=== PATIENT | female | born 1990 | race Caucasian/White ===

== ENCOUNTER 2022-01-10 07:45 | Inpatient (IN) ==
[2022-01-10] MEDS ORDERED: OXYTOCIN 30 UNITS/500 ML BAG IV PRN (09:17)
[2022-01-10] MEDS ORDERED: DINOPROSTONE 10 MG INSERT PV ONE ×2 (09:17→23:18)
[2022-01-10] MEDS ORDERED: BUTORPHANOL TARTRATE 1 MG/ML VIAL IV PRN (09:17)
--- NOTE | 2022-01-10 09:49 | History & Physical Report ---
Date of Service January 10, 2022 Assessment & Plan (1) Chronic hypertension during , antepartum: Plan: 31-year-old at 39 weeks and 3 days of gestation presenting today for scheduled induction of labor at term due to history of chronic hypertension, not on meds, Vital signs stable afebrile, heart rate reassuring, Cervix unfavorable, GBS and johnson testing were negative, Plan to admit, monitor, labs, cervical ripening with Cervidil. Discuss the op tions of cervical ripening and what to expect during induction of labor, she understands all. All questions were answered. Admission and Anticipated Discharge Date Admission Date: January 10, 2022 History of Present Illness Primary Care Provider: NO PCP Patient is a 31-year-old at 39 weeks and 3 days of gestation who was scheduled for induction of labor at term due to history of chronic hypertension. She was diagnosed with hypertension before her when she was placed on metoprolol which gave her side effects and she quit. Her blood pressures were within normal limits. She has not required any medication during this . She denies headaches, change in her vision, nausea vomiting, epigastric or right upper quadrant pain. She denies contractions, leakage of fluid, vaginal bleeding. She reports good movements. She has a history of intermittent asthma for which she uses albuterol inhaler as needed, she usually uses 3-4 times a year. Has a history of anxiety for which she was using escitalopram but she quit during this . GBS negative, Coronavirus testing negative on 01/07. 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 Allergies Allergy/AdvReac Type Severity Reaction Status Date / Time Penicillins Allergy Rash Verified 01/10/22 07:59 Home Medications Medication Instructions Recorded Confirmed Type albuterol 90 mcg/actuation aerosol 2 mcg INHALATION PRN 01/10/22 History inhaler aspirin 81 mg chewable tablet 81 mg PO DAILY 01/10/22 01/10/22 History polyethylene glycol 3350 17 gram 17 g PO DAILY 01/10/22 01/10/22 History oral powder packet (Miralax) prenat.vits,garth,muc-kiwn-lpsnc 1 tab PO DAILY 01/10/22 01/10/22 History Patient History Medical History (Updated 01/10/22 @ 09:48 by Jennifer Cohen MD) Asthma Chronic hypertension (~09/19/18) Constipation Rhinitis Thyroid goiter UTI (urinary tract infection) Surgical History Hx of LASIK S/P removal of ovarian cyst (~06/13/17) Family History Mother Hypercholesterolemia Grandmother (Maternal) Diabetes Mother Diabetes Mother Chronic hypertension Grandfather (Maternal) Chronic hypertension Grandmother (Maternal) Chronic hypertension Grandmother (Maternal) Colon cancer Social History Smoking Status: Never smoker Hx Alcohol Use: No Hx Substance Use: No Preferred Language: Vietnamese Communication Ability: Effective Food Sampler Required: No Beliefs That Will Affect Care: None marital status: Current Living Situation: Spouse Current Living Situation Comment: Lives with and 2 dogs Other Information That Helps Us Care for You: No Feels Safe at Home: Yes Safety Concerns: Feels Safe At This Time Assistive Devices: None TELETYPE CLERK History No h/o STD's, no h/o HSV/ Chlamydia/ GC Review of Systems as per Subjective / HPI Physical Exam Constitutional: WD/WN, vitals as above well developed and well nourished Gastrointestinal (Abdomen): normal bowel sounds, soft, nontender, no hepatosplenomegaly (Gravid, Oskar 8 lb) Genitourinary: normal external appearance OB Exam Abdomen: + vertex Manual OB Exam: + cervical dilation 1 cm, + cervical effacement 30% and + station -2 OB Exam Monitor Tracing: + external uterine monitor used and + category I Results & Data ([facility]) Vital Signs (Past 12 Hours) Vital Signs Temp Pulse Resp BP 01/10/22 09:40 94 H 141/93 H 01/10/22 08:50 97 H 139/97 01/10/22 08:30 98 H 138/95 01/10/22 07:57 37.1 C 105 H 20 143/98 H
[2022-01-10 10:08] LABS: Hematocrit (blood only) 33.5 % (37-47); Hemoglobin 11.3 g/dL (12.0-16.0); Mean Corpuscular Hemoglobin 30.5 pg (25-34); Mean Corpuscular Hgb Conc 33.7 g/dL (32-36); Mean Corpuscular Volume 90.5 fL (80-100); Mean Platelet Volume 11.3 fL (7.4-10.4); Platelet Count 214 K/uL (130-400); RDW Coefficient of Variation 12.7 % (11.5-14.5); RDW Standard Deviation 42.1 fL (36.4-46.3)
[2022-01-10] MEDS ORDERED: LABETALOL HCL 100 MG TAB PO ONE ×2 (10:10→18:07)
[2022-01-10 10:21] LABS: Alanine Aminotransferase 15 U/L (7-52); Albumin Globulin Ratio 1.2 (0.9-2); Albumin Level 3.5 gm/dl (3.4-5.0); Alkaline Phosphatase 165 U/L (34-104); Anion Gap 8 (3-11); Aspartate Aminotransferase 16 U/L (13-39); Bilirubin,Total 0.4 mg/dl (0.2-1.0); Blood Urea Nitrogen 7 mg/dl (6-23); Carbon Dioxide 21 mmol/L (21-32); Chloride 106 mmol/L (98-107); Creatinine Clr Calc Pharmacy 198.3 ml/min; Est GFR (African American) > 150.0 ml/min; Est GFR (Non-African American) 129.9 ml/min; Globulin 2.9 gm/dl (2.5-4.0); Glucose 91 mg/dl (70-99(Fasting)); Potassium 3.8 mmol/L (3.5-5.1); Sodium 135 mmol/L (136-145); Total Protein 6.4 gm/dl (6.0-8.3)
--- NOTE | 2022-01-10 17:01 | Obstetrical Progress Note ---
Date of Service January 10, 2022 Assessment & Plan Admission and Anticipated Discharge Date Admission Date: January 10, 2022 Subjective Patient is reevaluated. She feels well, no complaints. She feels mild irregula r cramping. No pain. No leakage of fluid or vaginal bleeding. She reports good movements. She plans to sleep and rest. Vital signs stable, s/p 50 mg of labetalol for elevated blood pressures and blood pressures improved. No other symptoms, labs are within normal limits. heart rate category 1, Continue to monitor closely and cervical ripening. Discussed what to expect with next exam and removal of Cervidil at 12 hours, All questions were answered. Results & Data ([facility]) Vital Signs (Past 12 Hours) Vital Signs Temp Pulse Resp BP 01/10/22 16:01 36.7 C 93 H 20 132/87 01/10/22 14:44 98 H 16 139/89 01/10/22 14:22 99 H 20 139/94 01/10/22 13:02 102 H 135/90 01/10/22 12:48 37 C 101 H 20 133/91 01/10/22 11:20 103 H 16 141/82 H 01/10/22 11:06 108 H 144/90 H 01/10/22 10:51 93 H 20 134/96 01/10/22 10:35 100 H 138/93 01/10/22 10:20 101 H 134/93 01/10/22 10:04 93 H 143/97 H 01/10/22 09:40 94 H 20 141/93 H 01/10/22 08:50 97 H 20 139/97 01/10/22 08:30 98 H 16 138/95 01/10/22 07:57 37.1 C 105 H 20 143/98 H
[2022-01-10] MEDS ORDERED: ONDANSETRON INJ 2 MG/ML 2 ML VIAL IV PRN (19:13)
[2022-01-10] MEDS: ACETAMINOPHEN 325 MG TAB PO PRN (19:24)
[2022-01-10] MEDS: LABETALOL HCL 100 MG TAB PO SCH (22:33)
--- NOTE | 2022-01-10 23:20 | Obstetrical Progress Note ---
Date of Service January 10, 2022 Assessment & Plan Admission and Anticipated Discharge Date Admission Date: January 10, 2022 Subjective Patient is reevaluated. She feels well no complaints Mild cramping and back pain No GLOVER/ Change in vision/ N&V She are dinner and kept down +FM Cervidil ws removed at 10 pm VE; 1-2 cm/ 50%/ -2, posterior, soft FHR categ I BP's stable, on Labetalol 50 mg bid Plan to continue with cervical ripening 2ND Cervidil Continue to monitor closely Results & Data ([facility]) Vital Signs (Past 12 Hours) Vital Signs Temp Pulse Resp BP 01/10/22 23:16 94 H 131/81 01/10/22 22:32 90 135/92 01/10/22 20:23 104 H 155/87 H 01/10/22 19:16 36.8 C 99 H 18 140/90 01/10/22 19:10 102 H 136/94 01/10/22 17:52 103 H 159/101 H 01/10/22 17:02 93 H 135/92 01/10/22 16:01 36.7 C 93 H 20 132/87 01/10/22 14:44 98 H 16 139/89 01/10/22 14:22 99 H 20 139/94 01/10/22 13:02 102 H 135/90 01/10/22 12:48 37 C 101 H 20 133/91 01/10/22 11:20 103 H 16 141/82 H
[2022-01-11] MEDS: ACETAMINOPHEN 325 MG TAB PO PRN (06:29)
--- NOTE | 2022-01-11 09:12 | Obstetrical Progress Note ---
Date of Service January 11, 2022 Assessment & Plan (1) Normal course: PPD #1 Pt doing well anticipate disch this PM Results & Data ([facility]) Vital Signs (Past 12 Hours) Vital Signs Temp Pulse Resp BP 01/11/22 07:04 36.8 C 96 H 18 133/89 01/11/22 07:01 97 H 132/87 01/11/22 06:27 92 H 134/83 01/11/22 06:26 36.7 C 16 01/11/22 04:16 36.6 C 95 H 16 145/89 H 01/11/22 02:13 36.8 C 16 01/11/22 01:54 93 H 125/72 01/10/22 23:16 94 H 131/81 01/10/22 22:32 90 135/92
[2022-01-11] MEDS: POLYETHYLENE (MIRALAX) 17 GM PACK PO SCH (14:40)
[2022-01-11] MEDS: LABETALOL HCL 100 MG TAB PO SCH ×2 (14:40→19:37)
[2022-01-11] MEDS: CEROVITE ADV FORMULA TAB PO SCH (14:40)
--- NOTE | 2022-01-11 16:40 | Labor Progress Brief Note ---
Date of Service January 11, 2022 Assessment & Plan (1) Elective induction of labor planned: Plan: Day #2 of induction Pt received Cervidil through night FHR; CAT1 Ctx Mild, irregular VE; 1-2/thick/post Cervidil removed Bailey bulb placed with 35cc saline w/o difficulty Admission and Anticipated Discharge Date Admission Date: January 10, 2022 Results & Data ([facility]) Vital Signs (Past 12 Hours) Vital Signs Temp Pulse Resp BP 01/11/22 13:45 36.6 C 93 H 18 135/90 01/11/22 07:04 36.8 C 96 H 18 133/89 01/11/22 07:01 97 H 132/87 01/11/22 06:27 92 H 134/83 01/11/22 06:26 36.7 C 16
[2022-01-11] MEDS: LACTATED RINGER'S 1,000 ML IV PRN ×2 (21:19→22:21)
[2022-01-11] MEDS ORDERED: diphenhydrAMINE 50 MG/ML VIAL IV PRN (21:24)
[2022-01-11] MEDS ORDERED: NALOXONE HCL 0.4 MG/1 ML VIAL/CARP IV PRN (21:24)
[2022-01-11] MEDS ORDERED: ePHEDrine sulfate 50 MG/ML AMP IV PRN (21:24)
[2022-01-11] MEDS ORDERED: ePHEDrine sulfate 50 MG/ML AMP ONE (21:24)
[2022-01-11] MEDS ORDERED: NALOXONE HCL 1 MG in SODIUM CHLORIDE 0.9% 1000ML 1,000 ML IV PRN (21:24)
[2022-01-11] MEDS ORDERED: NALBUPHINE HCL INJ 10 MG/ML AMP IV PRN (21:24)
--- NOTE | 2022-01-11 21:24 | Anesthesiology Consultation ---
Date of Service January 11, 2022 Assessment & Plan (1) Encounter for pre-operative examination: Chart Review Chart Review: Acceptable Risk for Surgery and Patient NOT seen in Pre Admission Testing Consults Requested none History Height/Weight Height: 5 ft 8 in Weight: 94.982 kg Allergies Allergy/AdvReac Type Severity Reaction Status Date / Time Penicillins Allergy Rash Verified 01/10/22 07:59 Medications Home Medications Medication Instructions Recorded Confirmed Last Taken albuterol 90 mcg/actuation aerosol 2 mcg INHALATION Q4 PRN 01/10/22 01/10/22 Unknown inhaler aspirin 81 mg chewable tablet 81 mg PO DAILY 01/10/22 01/10/22 01/10/22 06:00 polyethylene glycol 3350 17 gram 17 g PO DAILY 01/10/22 01/10/22 01/10/22 06:00 oral powder packet (Miralax) prenat.vits,garth,oaa-wowh-mldry 1 tab PO DAILY 01/10/22 01/10/22 01/10/22 06:00 acetaminophen 325 mg tablet 650 mg PO Q4H #30 tab 01/11/22 Unknown Active Medications Generic Name Dose Route Start Last Admin Trade Name Freq PRN Reason Stop Dose Admin Acetaminophen 650 mg 01/10/22 19:13 01/11/22 06:29 Acetaminophen 325 Mg Tab PO 02/09/22 19:12 650 mg Q4H PRN Administration Pain Lactated Ringer's 1,000 mls @ 150 mls/hr 01/10/22 09:17 01/11/22 21:19 Lr IV 01/12/22 09:16 999 mls/hr .[id number] PRN Administration L&D Protocol Protocol Labetalol HCl 50 mg 01/10/22 21:00 01/11/22 19:37 Labetalol Hcl 100 Mg Tab PO 02/09/22 20:59 50 mg BID KRYSTNE Administration Multivitamins/Minerals 1 tab 01/11/22 09:00 01/11/22 14:40 Cerovite Adv Formula Tab PO 02/10/22 08:59 Not Given DAILY KRYSTEN Polyethylene Glycol 17 gm 01/11/22 09:00 01/11/22 14:40 Polyethylene (Miralax) 17 Gm Pack PO 02/10/22 08:59 Not Given DAILY KRYSTEN Past Medical History Medical History Asthma Chronic hypertension (~09/19/18) Constipation Rhinitis Thyroid goiter UTI (urinary tract infection) Past Family History Family History Mother Hypercholesterolemia Grandmother (Maternal) Diabetes Mother Diabetes Mother Chronic hypertension Grandfather (Maternal) Chronic hypertension Grandmother (Maternal) Chronic hypertension Grandmother (Maternal) Colon cancer Past Surgical History Surgical History Hx of LASIK S/P removal of ovarian cyst (~06/13/17) Social History Smoking Status: Never smoker Hx Alcohol Use: No Hx Substance Use: No substance use type: does not use Physical Exam Vital Signs Last Vital Signs Temp 98.1 F 01/11/22 18:44 Pulse 95 H 01/11/22 21:15 Resp 20 01/11/22 18:44 BP 143/96 H 01/11/22 21:15 Testing Laboratory Results 01/10/22 09:35 01/10/22 09:35
[2022-01-11] MEDS ORDERED: fentaNYL 2MCG/ML ROPIVACAINE 1.25MG/ML 100 ML BAG EPI ONE (21:25)
[2022-01-11] MEDS ORDERED: BUPIVACAINE 0.25% 30 ML VIAL ONE (21:25)
[2022-01-11] MEDS ORDERED: fentaNYL citrate 100 MCG/2 ML VIAL ONE (21:25)
[2022-01-11] MEDS ORDERED: SODIUM CHLORIDE 0.9% INJ 10 ML VIAL ONE (21:25)
[2022-01-11] MEDS ORDERED: OXYTOCIN 30 UNITS/500 ML BAG IV PRN (21:44)
--- NOTE | 2022-01-11 21:44 | Labor Progress Brief Note ---
Date of Service January 11, 2022 Assessment & Plan (1) Elective induction of labor planned: Plan: Pt doing well Bedside sono; VT FHR; CAT1 Ctx; 3-6mins VE; 4/50/-2 AROM with scalp electrode- clear EFW; 8-9lbs Admission and Anticipated Discharge Date Admission Date: January 10, 2022 Results & Data ([facility]) Vital Signs (Past 12 Hours) Vital Signs Temp Pulse Resp BP Pulse Ox 01/11/22 21:38 92 H 97 01/11/22 21:15 95 H 143/96 H 01/11/22 21:07 100 H 139/96 01/11/22 19:32 103 H 141/99 H 01/11/22 18:44 36.7 C 98 H 20 144/93 H 01/11/22 13:45 36.6 C 93 H 18 135/90
[2022-01-11] MEDS: fentaNYL 2MCG/ML ROPIVACAINE 1.25MG/ML 100 ML BAG EPI PRN (21:51)
[2022-01-12] MEDS ORDERED: BUPIVACAINE 0.25% 30 ML VIAL ONE ×2 (04:06→07:02)
[2022-01-12] MEDS ORDERED: fentaNYL citrate 100 MCG/2 ML VIAL ONE ×2 (04:11→09:10)
[2022-01-12] MEDS: fentaNYL 2MCG/ML ROPIVACAINE 1.25MG/ML 100 ML BAG EPI PRN (04:22)
[2022-01-12] MEDS: LACTATED RINGER'S 1,000 ML IV PRN (06:08)
[2022-01-12] MEDS ORDERED: LIDOCAINE 2%/EPINEPHRINE 1:200,000 20 ML SDV ONE (09:01)
[2022-01-12 09:22] LABS: Basophils # (auto) 0.01 K/uL (0-0.2); Basophils % (auto) 0.1 %; Hematocrit (blood only) 35.1 % (37-47); Hemoglobin 11.9 g/dL (12.0-16.0); Immature Granulocytes # (auto) 0.13 K/uL (0.00-0.02); Immature Granulocytes % (auto) 0.7 %; Lymphocytes # (auto) 0.75 K/uL (1.2-3.4); Mean Corpuscular Hemoglobin 30.3 pg (25-34); Mean Corpuscular Hgb Conc 33.9 g/dL (32-36); Mean Corpuscular Volume 89.3 fL (80-100); Mean Platelet Volume 11.2 fL (7.4-10.4); Monocytes # (auto) 1.07 K/uL (0.11-0.59); Monocytes % (auto) 5.8 %; Neutrophils # (auto) 16.58 K/uL (1.4-6.5); Neutrophils % (auto) 89.4 %; Platelet Count 190 K/uL (130-400); RDW Coefficient of Variation 13.2 % (11.5-14.5); RDW Standard Deviation 42.8 fL (36.4-46.3); Red Blood Count 3.93 M/uL (4.2-5.4); White Blood Count 18.54 K/uL (4.8-10.8)
--- NOTE | 2022-01-12 09:42 | Obstetrical Progress Note ---
Date of Service January 12, 2022 Assessment & Plan Admission and Anticipated Discharge Date Admission Date: January 10, 2022 Subjective Patient is seen and examined. I got a signout from Dr. Byrnes around her last ni ght and started Pitocin. Her cervix was 9 cm dilated and +1 station when he left. Patient got more painful and received another epidural this morning. I attempt to see her about an hour ago but she was very painful and crying. Anesthesia came in again and gave her bolus 1 more time. Now she is more comfortable. heart rate is category 1, toco with contractions every 2 to 3 minutes. Vaginal exam, cervix is 9, soft reducible anterior left but there are thin cervix on both sides of the head. Anterior fontanelle is at 3 o'clock position. Head is at +1 station with a small caput which is at +2 station. Patient states she is tired and wants to sleep. Continue to monitor closely and will start pushing when cervix is completely dilated. Results & Data ([facility]) Vital Signs (Past 12 Hours) Vital Signs Temp Pulse Resp BP Pulse Ox 01/12/22 09:35 112 H 159/95 H 01/12/22 09:34 114 H 97 01/12/22 09:31 105 H 145/81 H 01/12/22 09:29 104 H 95 01/12/22 09:28 103 H 151/82 H 01/12/22 09:25 99 H 151/86 H 01/12/22 09:24 99 H 94 01/12/22 09:23 102 H 152/87 H 01/12/22 09:20 36.9 C 97 H 17 88 L 01/12/22 09:19 96 H 161/87 H 94 01/12/22 09:16 99 H 158/78 H 01/12/22 09:14 94 H 97 01/12/22 09:13 96 H 156/87 H 85 L 01/12/22 09:10 84 168/95 H 01/12/22 09:08 92 H 99 01/12/22 09:07 91 H 159/96 H 01/12/22 09:05 88 149/91 H 01/12/22 09:04 89 143/87 H 01/12/22 09:03 105 H 98 01/12/22 08:58 100 H 98 01/12/22 08:57 97 H 145/89 H 01/12/22 08:53 91 H 143/85 H 98 01/12/22 08:48 89 144/85 H 96 01/12/22 08:43 92 H 141/91 H 98 01/12/22 08:38 100 H 156/84 H 96 01/12/22 08:33 103 H 143/92 H 95 01/12/22 08:28 99 H 95 01/12/22 08:27 115 H 132/92 01/12/22 08:23 103 H 96 01/12/22 08:22 114 H 155/86 H 01/12/22 08:18 104 H 95 01/12/22 08:17 108 H 134/84 01/12/22 08:13 95 H 94 01/12/22 08:12 101 H 131/82 01/12/22 08:08 107 H 95 01/12/22 08:07 105 H 137/87 01/12/22 08:03 114 H 97 01/12/22 08:02 108 H 140/89 01/12/22 07:59 106 H 87 L 01/12/22 07:58 103 H 91 01/12/22 07:57 106 H 141/87 H 01/12/22 07:54 98 H 141/87 H 01/12/22 07:53 90 95 01/12/22 07:49 101 H 141/83 H 01/12/22 07:48 98 H 98 01/12/22 07:43 105 H 96 01/12/22 07:42 102 H 139/87 01/12/22 07:39 93 H 88 L 01/12/22 07:38 92 H 93 01/12/22 07:35 108 H 136/89 01/12/22 07:34 98 H 89 L 01/12/22 07:33 97 H 139/91 90 01/12/22 07:31 91 H 140/92 01/12/22 07:29 111 H 146/91 H 01/12/22 07:28 37.0 C 98 H 16 90 01/12/22 07:27 95 H 144/88 H 01/12/22 07:25 102 H 144/90 H 01/12/22 07:23 94 H 147/87 H 96 01/12/22 07:21 90 149/86 H 01/12/22 07:20 88 149/89 H 01/12/22 07:18 105 H 158/93 H 98 01/12/22 07:15 90 158/92 H 01/12/22 07:13 106 H 98 01/12/22 07:08 104 H 96 01/12/22 07:04 95 H 156/95 H 01/12/22 07:03 100 H 92 01/12/22 07:00 18 01/12/22 06:58 102 H 94 01/12/22 06:53 113 H 97 01/12/22 06:50 97 H 87 L 01/12/22 06:49 107 H 146/92 H 01/12/22 06:48 99 H 91 01/12/22 06:44 100 H 86 L 01/12/22 06:43 96 H 94 01/12/22 06:38 111 H 93 01/12/22 06:36 105 H 87 L 01/12/22 06:33 100 H 93 01/12/22 06:32 110 H 150/77 H 01/12/22 06:30 36.9 C 18 01/12/22 06:28 104 H 93 01/12/22 06:23 110 H 98 01/12/22 06:18 107 H 96 01/12/22 06:13 100 H 90 01/12/22 06:10 101 H 86 L 01/12/22 06:08 102 H 97 01/12/22 06:03 96 H 97 01/12/22 06:00 18 01/12/22 05:58 106 H 95 01/12/22 05:53 119 H 94 01/12/22 05:48 115 H 97 01/12/22 05:43 107 H 94 01/12/22 05:38 113 H 96 01/12/22 05:33 125 H 146/94 H 98 01/12/22 05:30 18 01/12/22 05:28 118 H 99 01/12/22 05:23 127 H 98 01/12/22 05:18 114 H 136/85 96 01/12/22 05:13 124 H 95 01/12/22 05:08 113 H 97 01/12/22 05:03 107 H 132/84 96 01/12/22 05:00 18 01/12/22 04:58 111 H 97 01/12/22 04:53 105 H 96 01/12/22 04:48 119 H 140/100 95 01/12/22 04:43 109 H 93 01/12/22 04:38 104 H 98 01/12/22 04:33 98 H 96 01/12/22 04:32 100 H 134/78 01/12/22 04:30 36.9 C 18 01/12/22 04:28 108 H 96 01/12/22 04:23 109 H 95 01/12/22 04:20 106 H 94 01/12/22 04:18 103 H 95 01/12/22 04:17 90 119/67 01/12/22 04:15 108 H 92 01/12/22 04:13 96 H 97 01/12/22 04:08 97 H 98 01/12/22 04:06 95 H 94 01/12/22 04:03 111 H 97 01/12/22 04:02 105 H 132/84 01/12/22 04:00 18 01/12/22 03:59 107 H 93 01/12/22 03:58 96 H 98 01/12/22 03:53 105 H 97 01/12/22 03:48 93 H 97 01/12/22 03:47 98 H 131/79 01/12/22 03:43 103 H 96 01/12/22 03:38 101 H 96 01/12/22 03:36 106 H 94 01/12/22 03:34 105 H 133/80 01/12/22 03:33 102 H 94 01/12/22 03:30 105 H 94 01/12/22 03:28 103 H 94 01/12/22 03:25 107 H 94 01/12/22 03:23 101 H 94 01/12/22 03:20 107 H 94 01/12/22 03:18 103 H 94 01/12/22 03:17 104 H 126/75 01/12/22 03:14 100 H 94 01/12/22 03:13 114 H 97 01/12/22 03:08 106 H 95 01/12/22 03:06 105 H 94 01/12/22 03:03 102 H 96 01/12/22 03:02 107 H 109/71 01/12/22 03:01 97 H 94 01/12/22 02:58 105 H 97 01/12/22 02:53 96 H 94 01/12/22 02:50 96 H 94 01/12/22 02:48 101 H 95 01/12/22 02:47 99 H 129/84 01/12/22 02:44 99 H 124/83 01/12/22 02:43 105 H 96 01/12/22 02:38 98 H 98 01/12/22 02:33 92 H 97 01/12/22 02:30 18 01/12/22 02:28 94 H 95 01/12/22 02:23 95 H 96 01/12/22 02:18 90 98 01/12/22 02:17 91 H 127/79 01/12/22 02:16 91 H 135/82 01/12/22 02:13 105 H 95 01/12/22 02:11 95 H 93 01/12/22 02:08 87 97 01/12/22 02:05 92 H 93 01/12/22 02:03 90 98 01/12/22 02:00 36.9 C 18 01/12/22 01:58 102 H 97 01/12/22 01:53 95 H 97 01/12/22 01:48 89 96 01/12/22 01:47 88 132/87 01/12/22 01:43 97 H 97 01/12/22 01:38 92 H 96 01/12/22 01:33 90 99 01/12/22 01:32 88 131/78 01/12/22 01:30 18 01/12/22 01:28 88 96 01/12/22 01:23 90 97 01/12/22 01:18 89 136/80 97 01/12/22 01:13 94 H 96 01/12/22 01:08 90 96 01/12/22 01:03 95 H 96 01/12/22 01:02 90 124/71 01/12/22 01:00 18 01/12/22 00:58 94 H 98 01/12/22 00:53 95 H 96 01/12/22 00:48 88 96 01/12/22 00:47 97 H 128/79 01/12/22 00:43 99 H 95 01/12/22 00:38 95 H 97 01/12/22 00:33 90 120/72 96 01/12/22 00:30 36.9 C 18 01/12/22 00:28 94 H 95 01/12/22 00:27 88 94 01/12/22 00:23 84 96 01/12/22 00:18 91 H 133/92 92 01/12/22 00:13 87 95 01/12/22 00:08 85 96 01/12/22 00:03 97 H 124/88 97 01/12/22 00:00 18 01/11/22 23:58 97 H 97 01/11/22 23:53 98 H 97 01/11/22 23:49 88 120/74 01/11/22 23:48 85 95 01/11/22 23:47 88 94 01/11/22 23:43 91 H 95 01/11/22 23:38 89 96 01/11/22 23:33 88 95 01/11/22 23:32 84 122/83 01/11/22 23:30 18 01/11/22 23:28 88 97 01/11/22 23:23 89 98 01/11/22 23:18 97 H 98 01/11/22 23:17 83 125/85 01/11/22 23:13 88 96 01/11/22 23:08 88 97 01/11/22 23:03 89 96 01/11/22 23:02 86 121/82 01/11/22 23:00 18 01/11/22 22:58 91 H 97 01/11/22 22:53 97 H 98 01/11/22 22:48 98 H 98 01/11/22 22:47 90 134/88 01/11/22 22:43 94 H 98 01/11/22 22:38 99 H 98 01/11/22 22:33 100 H 97 01/11/22 22:32 91 H 136/86 01/11/22 22:28 96 H 98 01/11/22 22:23 93 H 98 01/11/22 22:18 88 97 01/11/22 22:17 90 133/85 01/11/22 22:15 86 136/96 01/11/22 22:13 94 H 136/93 97 01/11/22 22:11 86 141/92 H 01/11/22 22:09 91 H 144/92 H 01/11/22 22:08 93 H 97 01/11/22 22:07 92 H 135/89 01/11/22 22:05 90 134/97 01/11/22 22:04 18 01/11/22 22:03 90 131/88 97 01/11/22 22:02 18 01/11/22 22:01 92 H 132/86 01/11/22 22:00 18 01/11/22 21:59 89 132/87 01/11/22 21:58 89 18 97 01/11/22 21:57 95 H 137/94 01/11/22 21:56 18 01/11/22 21:55 86 133/87 01/11/22 21:53 94 H 150/90 H 98 01/11/22 21:51 93 H 150/99 H 01/11/22 21:49 86 138/92 01/11/22 21:48 90 95 01/11/22 21:43 100 H 98
[2022-01-12 10:05] LABS: Albumin Globulin Ratio 1.3 (0.9-2); Albumin Level 3.5 gm/dl (3.4-5.0); BUN Creatinine Ratio 11.3 (10-20); Calcium 8.8 mg/dl (8.5-10.1); Est GFR (African American) 147.7 ml/min; Est GFR (Non-African American) 127.4 ml/min; Globulin 2.8 gm/dl (2.5-4.0); Potassium 3.6 mmol/L (3.5-5.1); Total Protein 6.3 gm/dl (6.0-8.3)
[2022-01-12] MEDS: CEROVITE ADV FORMULA TAB PO SCH (10:59)
[2022-01-12] MEDS: LABETALOL HCL 100 MG TAB PO SCH ×2 (10:59→20:06)
[2022-01-12] MEDS: POLYETHYLENE (MIRALAX) 17 GM PACK PO SCH (10:59)
[2022-01-12] MEDS ORDERED: MINERAL OIL 30 ML UDC ONE (11:36)
--- NOTE | 2022-01-12 12:49 | Anesthesia Procedure Note ---
Date of Service January 12, 2022 Anesthesia Post Epidural Note Vital Signs Vital Signs: Temp Pulse Resp BP Pulse Ox 37.0 C 115 H 17 146/84 H 94 01/12/22 11:01 01/12/22 12:38 01/12/22 09:20 01/12/22 12:38 01/12/22 12:29 Pain Intensity Head: Pain Intensity: 6 Lower Back: Pain Intensity: 9 Notes Mental Status: alert / awake / arousable and participated in evaluation Patient Amnestic to Procedure: No Nausea / Vomiting: adequately controlled Pain: adequately controlled Airway Patency, RR, SpO2: stable & adequate BP & HR: stable & adequate Hydration State: stable & adequate Neuraxial Anesthesia: was administered and sensory block is resolving Anesthetic Complications: no major complications apparent and Pt Satisfied with anesthetic care Epidural: Removed without complications and With tip intact
[2022-01-12] MEDS ORDERED: bisacodyL 10 MG SUPP PR PRN (12:57)
[2022-01-12] MEDS ORDERED: HYDROCORTISONE ACETATE 25 MG SUPP PR PRN (12:57)
[2022-01-12] MEDS ORDERED: MEASLES, MUMPS & RUBELLA VIRUS VIAL SQ ONE (12:57)
[2022-01-12] MEDS ORDERED: ACETAMINOPHEN 325 MG TAB PO PRN (12:57)
[2022-01-12] MEDS ORDERED: oxyCODONE/ACETAMINOPHEN 5mg/325mg TAB PO PRN (12:57)
[2022-01-12] MEDS ORDERED: BENZOCAINE 20% AER SPR 82.5 GM CAN EXT PRN (12:57)
[2022-01-12] MEDS ORDERED: DIPHTHERIA/TETANUS/PERTUSSIS 0.5 ML SYR/VIAL IM ONE (12:57)
[2022-01-12] MEDS ORDERED: OXYTOCIN 30 UNITS/500 ML BAG IV PRN (12:57)
[2022-01-12] MEDS ORDERED: miSOPROStoL 200 MCG TAB PR ONE (12:57)
--- NOTE | 2022-01-12 13:01 | Delivery Summary ---
Vaginal Delivery Summary Date of Service January 12, 2022 Vaginal Delivery Summary Patient was found to be fluid dilated and desire to push she pushed for about an hour and delivered the head without difficulty. The shoulders were delivered with minimal traction and baby was handed off to the mother where mouth and nose were suctioned, the cord was clamped times and cut at 1 minute delay. The baby was vigorously moving and crying. The vagina and perineum were checked for lacerations. There were small first- degree lacerations at the right labia, and on the hymen at 10 and 7:00 positions. Those were repaired with 3-0 Vicryl excellent hemostasis was achieved. The rest of the vagina and perineum were intact. Then the placenta was found to be in the vagina, delivered spontaneously as intact and complete. Uterus was explored and found to be empty and the lower segment was cleared of all clots and debris's, this was massaged and IV oxytocin was started. EBL was 300 and fundus was firm. The patient was given 800 mcg of misoprostol rectally. The mom and baby tolerated procedure well. The sponge, needle and instrument count was correct x2. Baby was a viable male , Apgars were 8/9 and weight is pending. No complications happened and I was present during whole procedure.
[2022-01-12] MEDS: IBUPROFEN 600 MG TAB PO PRN (15:59)
[2022-01-12] MEDS: DOCUSATE SODIUM 100 MG CAP PO SCH (20:06)
[2022-01-13] MEDS ORDERED: miSOPROStoL 200 MCG TAB ONE (00:09)
[2022-01-13] MEDS: IBUPROFEN 600 MG TAB PO PRN ×4 (04:59→18:07)
[2022-01-13 07:29] LABS: Hematocrit (blood only) 31.2 % (37-47); Hemoglobin 10.4 g/dL (12.0-16.0); Mean Corpuscular Hemoglobin 30.2 pg (25-34); Mean Corpuscular Hgb Conc 33.3 g/dL (32-36); Mean Corpuscular Volume 90.7 fL (80-100); Mean Platelet Volume 11.3 fL (7.4-10.4); Platelet Count 241 K/uL (130-400); RDW Coefficient of Variation 13.6 % (11.5-14.5); RDW Standard Deviation 44.7 fL (36.4-46.3); Red Blood Count 3.44 M/uL (4.2-5.4); White Blood Count 18.61 K/uL (4.8-10.8)
--- NOTE | 2022-01-13 07:50 | Obstetrical Progress Note ---
Date of Service January 13, 2022 Assessment & Plan Admission and Anticipated Discharge Date Admission Date: January 10, 2022 Subjective Patient is seen and examined. She feels well, no complaints. Ambulating without dizziness Voiding without difficulty Tolerating regular diet with out N&V Bleeding is minimal No fever/ chills/ CP/ SOB/ N&V/ Leg pain Breast feeding without problems Vital Signs Temp Pulse Resp BP Pulse Ox 01/13/22 04:00 36.7 C 101 H 16 124/83 01/13/22 00:00 36.8 C 101 H 16 122/85 98 PE: General: Alert, orientedx3, NAD Abd: soft, NT, fundus firm, below Umbilicus Perineum intact, Lochia rubra minimal Ext; NT, no edema AP: 31 yo s/p , ppd# 1 VSS Afebrile doing well On Labetalol for elevated BP in labor, improved after delivery Hold Labetolo this morning Continue routine care All questions were answered Results & Data ([facility]) Vital Signs (Past 12 Hours) Vital Signs Temp Pulse Resp BP Pulse Ox 01/13/22 04:00 36.7 C 101 H 16 124/83 01/13/22 00:00 36.8 C 101 H 16 122/85 98
[2022-01-13] MEDS: PRENATAL VITAMIN 1 TAB PO SCH (09:10)
[2022-01-13] MEDS: FERROUS SULFATE 325 MG TAB PO SCH (09:10)
[2022-01-13] MEDS: POLYETHYLENE (MIRALAX) 17 GM PACK PO SCH (09:10)
[2022-01-13] MEDS: DOCUSATE SODIUM 100 MG CAP PO SCH ×2 (09:11→20:57)
[2022-01-13] MEDS: CEROVITE ADV FORMULA TAB PO SCH (09:12)
[2022-01-13 10:15] LABS: Appearance Urine Cloudy (Clear); Bacteria Urine Automated 4+ (Negative); Bilirubin Urine Negative (Negative); Blood Urine 2+ (Negative); Color Urine Yellow; Epithelial Cell Urine Auto 0-5 /lpf (0-5); Glucose Urine UA Negative (Negative); Ketones Urine Negative (Negative); Leukocyte Esterase Urine 2+ (Negative); Nitrite Urine Positive (Negative); Protein Urine Trace (Negative); Specific Gravity Urine 1.018 (1.000-1.030); Urobilinogen Urine Negative (Negative); WBC Urine Automated >30 /hpf (0-5); pH Urine 5.5 (4.5-7.5)
[2022-01-13] MEDS: LABETALOL HCL 100 MG TAB PO SCH ×2 (10:22→20:57)
[2022-01-13] MEDS: cephALEXin 500 MG CAP PO SCH ×2 (15:49→21:40)
[2022-01-13] MEDS ORDERED: bisacodyL 5 MG TABEC PO SCH (20:00)
[2022-01-14] MEDS ORDERED: cephALEXin 500 MG CAP PO SCH
[2022-01-14] MEDS: IBUPROFEN 600 MG TAB PO PRN (02:21)
[2022-01-14 07:49] LABS: Eosinophils # (auto) 0.13 K/uL (0-0.5); Eosinophils % (auto) 1.5 %; Hematocrit (blood only) 27.7 % (37-47); Hemoglobin 9.1 g/dL (12.0-16.0); Immature Granulocytes # (auto) 0.04 K/uL (0.00-0.02); Immature Granulocytes % (auto) 0.5 %; Lymphocytes % (auto) 19.7 %; Mean Corpuscular Hemoglobin 30.1 pg (25-34); Mean Corpuscular Hgb Conc 32.9 g/dL (32-36); Mean Corpuscular Volume 91.7 fL (80-100); Mean Platelet Volume 10.8 fL (7.4-10.4); Monocytes # (auto) 0.56 K/uL (0.11-0.59); Monocytes % (auto) 6.5 %; Neutrophils # (auto) 6.22 K/uL (1.4-6.5); Neutrophils % (auto) 71.8 %; Platelet Count 183 K/uL (130-400); RDW Coefficient of Variation 13.6 % (11.5-14.5); RDW Standard Deviation 44.7 fL (36.4-46.3); Red Blood Count 3.02 M/uL (4.2-5.4); White Blood Count 8.65 K/uL (4.8-10.8)
--- NOTE | 2022-01-14 08:12 | Obstetrical Progress Note ---
Date of Service January 14, 2022 Subjective Ambulation: ambulating normally Voiding: no voiding problems Passing Gas:: Yes Diet Tolerance:: regular diet Lochia:: Small Feeding Type:: breast feeding Current Pain Level(1-10): 0 doing well. plans for d/c Physical Exam Constitutional WD/WN, vitals as above Gastrointestinal (Abdomen) Inspection/Auscultation: abdomen normal to inspection Percussion/Palpation: abdomen soft Genitourinary OB Exam Abdomen: + fundal height Fundus: + firm and + relation to umbilicus doing well for d/c today Results & Data ([facility]) Vital Signs (Past 12 Hours) Vital Signs Temp Pulse Resp BP Pulse Ox 01/13/22 23:03 36.6 C 96 H 18 112/76 98 Laboratory Results 01/10/22 01/10/22 01/12/22 09:35 09:35 09:03 WBC 9.40 RBC 3.70 L Hgb 11.3 L Hct 33.5 L MCV 90.5 MCH 30.5 MCHC 33.7 RDW Std Deviation 42.1 RDW Coeff of Miles 12.7 Plt Count 214 MPV 11.3 H Immature Gran % (Auto) Neut % (Auto) Lymph % (Auto) [place] % (Auto) Eos % (Auto) Baso % (Auto) Neut # (Auto) Lymph # (Auto) [place] # (Auto) Eos # (Auto) Baso # (Auto) Immature Gran # (Auto) Sodium 135 L 134 L Potassium 3.8 3.6 Chloride 106 105 Carbon Dioxide 21 18 L Anion Gap 8 11 BUN 7 6 Creatinine 0.50 L 0.53 L Est Cr Clr Drug Dosing 198.3 187.0 Est GFR ( Amer) > 150.0 147.7 Est GFR (Non-Af Amer) 129.9 127.4 BUN/Creatinine Ratio 14.0 11.3 Glucose 91 108 H Calcium 9.0 8.8 Total Bilirubin 0.4 1.0 D AST 16 17 ALT 15 17 Alkaline Phosphatase 165 H 185 H Total Protein 6.4 6.3 Albumin 3.5 3.5 Globulin 2.9 2.8 Albumin/Globulin Ratio 1.2 1.3 Urine Color Urine Appearance Urine pH Ur Specific [place] Urine Protein Urine Glucose (UA) Urine Ketones Urine Blood Urine Nitrite Urine Bilirubin Urine Urobilinogen Ur Leukocyte Esterase Urine WBC (Auto) Urine RBC (Auto) U Hyaline Cast (Auto) U Epithel Cells (Auto) Urine Bacteria (Auto) 01/12/22 01/13/22 01/13/22 09:04 06:49 09:47 WBC 18.54 H 18.61 H RBC 3.93 L 3.44 L Hgb 11.9 L 10.4 L Hct 35.1 L 31.2 L MCV 89.3 90.7 MCH 30.3 30.2 MCHC 33.9 33.3 RDW Std Deviation 42.8 44.7 RDW Coeff of Miles 13.2 13.6 Plt Count 190 241 MPV 11.2 H 11.3 H Immature Gran % (Auto) 0.7 Neut % (Auto) 89.4 Lymph % (Auto) 4.0 [place] % (Auto) 5.8 Eos % (Auto) 0.0 Baso % (Auto) 0.1 Neut # (Auto) 16.58 H Lymph # (Auto) 0.75 L [place] # (Auto) 1.07 H Eos # (Auto) 0.00 Baso # (Auto) 0.01 Immature Gran # (Auto) 0.13 H Sodium Potassium Chloride Carbon Dioxide Anion Gap BUN Creatinine Est Cr Clr Drug Dosing Est GFR ( Amer) Est GFR (Non-Af Amer) BUN/Creatinine Ratio Glucose Calcium Total Bilirubin AST ALT Alkaline Phosphatase Total Protein Albumin Globulin Albumin/Globulin Ratio Urine Color Yellow Urine Appearance Cloudy A Urine pH 5.5 Ur Specific [place] 1.018 Urine Protein Trace H Urine Glucose (UA) Negative Urine Ketones Negative Urine Blood 2+ H Urine Nitrite Positive A Urine Bilirubin Negative Urine Urobilinogen Negative Ur Leukocyte Esterase 2+ H Urine WBC (Auto) >30 H Urine RBC (Auto) 5-10 H U Hyaline Cast (Auto) 1-5 U Epithel Cells (Auto) 0-5 Urine Bacteria (Auto) 4+ H 01/14/22 07:26 WBC 8.65 RBC 3.02 L Hgb 9.1 L Hct 27.7 L MCV 91.7 MCH 30.1 MCHC 32.9 RDW Std Deviation 44.7 RDW Coeff of Miles 13.6 Plt Count 183 MPV 10.8 H Immature Gran % (Auto) 0.5 Neut % (Auto) 71.8 Lymph % (Auto) 19.7 [place] % (Auto) 6.5 Eos % (Auto) 1.5 Baso % (Auto) 0.0 Neut # (Auto) 6.22 Lymph # (Auto) 1.70 [place] # (Auto) 0.56 Eos # (Auto) 0.13 Baso # (Auto) 0.00 Immature Gran # (Auto) 0.04 H Sodium Potassium Chloride Carbon Dioxide Anion Gap BUN Creatinine Est Cr Clr Drug Dosing Est GFR ( Amer) Est GFR (Non-Af Amer) BUN/Creatinine Ratio Glucose Calcium Total Bilirubin AST ALT Alkaline Phosphatase Total Protein Albumin Globulin Albumin/Globulin Ratio Urine Color Urine Appearance Urine pH Ur Specific [place] Urine Protein Urine Glucose (UA) Urine Ketones Urine Blood Urine Nitrite Urine Bilirubin Urine Urobilinogen Ur Leukocyte Esterase Urine WBC (Auto) Urine RBC (Auto) U Hyaline Cast (Auto) U Epithel Cells (Auto) Urine Bacteria (Auto) Diagnostic Findings Laboratory Results - last 72 hr 01/12/22 01/12/22 01/13/22 09:03 09:04 06:49 WBC 18.54 H 18.61 H RBC 3.93 L 3.44 L Hgb 11.9 L 10.4 L Hct 35.1 L 31.2 L MCV 89.3 90.7 MCH 30.3 30.2 MCHC 33.9 33.3 RDW Std Deviation 42.8 44.7 RDW Coeff of Miles 13.2 13.6 Plt Count 190 241 MPV 11.2 H 11.3 H Immature Gran % (Auto) 0.7 Neut % (Auto) 89.4 Lymph % (Auto) 4.0 [place] % (Auto) 5.8 Eos % (Auto) 0.0 Baso % (Auto) 0.1 Neut # (Auto) 16.58 H Lymph # (Auto) 0.75 L [place] # (Auto) 1.07 H Eos # (Auto) 0.00 Baso # (Auto) 0.01 Immature Gran # (Auto) 0.13 H Sodium 134 L Potassium 3.6 Chloride 105 Carbon Dioxide 18 L Anion Gap 11 BUN 6 Creatinine 0.53 L Est Cr Clr Drug Dosing 187.0 Est GFR ( Amer) 147.7 Est GFR (Non-Af Amer) 127.4 BUN/Creatinine Ratio 11.3 Glucose 108 H Calcium 8.8 Total Bilirubin 1.0 D AST 17 ALT 17 Alkaline Phosphatase 185 H Total Protein 6.3 Albumin 3.5 Globulin 2.8 Albumin/Globulin Ratio 1.3 Urine Color Urine Appearance Urine pH Ur Specific [place] Urine Protein Urine Glucose (UA) Urine Ketones Urine Blood Urine Nitrite Urine Bilirubin Urine Urobilinogen Ur Leukocyte Esterase Urine WBC (Auto) Urine RBC (Auto) U Hyaline Cast (Auto) U Epithel Cells (Auto) Urine Bacteria (Auto) 01/13/22 01/14/22 09:47 07:26 WBC 8.65 RBC 3.02 L Hgb 9.1 L Hct 27.7 L MCV 91.7 MCH 30.1 MCHC 32.9 RDW Std Deviation 44.7 RDW Coeff of [place] 13.6 Plt Count 183 MPV 10.8 H Immature Gran % (Auto) 0.5 Neut % (Auto) 71.8 Lymph % (Auto) 19.7 [place] % (Auto) 6.5 Eos % (Auto) 1.5 Baso % (Auto) 0.0 Neut # (Auto) 6.22 Lymph # (Auto) 1.70 [place] # (Auto) 0.56 Eos # (Auto) 0.13 Baso # (Auto) 0.00 Immature Gran # (Auto) 0.04 H Sodium Potassium Chloride Carbon Dioxide Anion Gap BUN Creatinine Est Cr Clr Drug Dosing Est GFR ( Amer) Est GFR (Non-Af Amer) BUN/Creatinine Ratio Glucose Calcium Total Bilirubin AST ALT Alkaline Phosphatase Total Protein Albumin Globulin Albumin/Globulin Ratio Urine Color Yellow Urine Appearance Cloudy A Urine pH 5.5 Ur Specific [place] 1.018 Urine Protein Trace H Urine Glucose (UA) Negative Urine Ketones Negative Urine Blood 2+ H Urine Nitrite Positive A Urine Bilirubin Negative Urine Urobilinogen Negative Ur Leukocyte Esterase 2+ H Urine WBC (Auto) >30 H Urine RBC (Auto) 5-10 H U Hyaline Cast (Auto) 1-5 U Epithel Cells (Auto) 0-5 Urine Bacteria (Auto) 4+ H
[2022-01-14] MEDS: PRENATAL VITAMIN 1 TAB PO SCH (09:11)
[2022-01-14] MEDS: FERROUS SULFATE 325 MG TAB PO SCH (09:11)
[2022-01-14] MEDS: DOCUSATE SODIUM 100 MG CAP PO SCH (09:11)
[2022-01-14] MEDS: LABETALOL HCL 100 MG TAB PO SCH (09:12)
[2022-01-14] MEDS: cephALEXin 500 MG CAP PO SCH (09:12)
[2022-01-14] MEDS ORDERED: Nursing to Pharmacy Communication SCH (11:45)
[2022-01-18] MEDS ORDERED: Nursing to Pharmacy Communication SCH (23:51)
== END 2022-01-14 12:40 | disposition home or self-care (01) | DRG 807 ==
LOC: 4S1 07:45 → 4E2 01-12 15:10

== ENCOUNTER 2023-12-26 07:33 | Inpatient (IN) ==
[2023-12-26] MEDS ORDERED: CALCIUM CARBONATE 500 MG CHEWABLE TAB PO PRN (07:43)
[2023-12-26] MEDS ORDERED: ACETAMINOPHEN 500 MG TAB PO PRN (07:43)
[2023-12-26] MEDS ORDERED: OXYTOCIN 30 UNITS/NSS 30 UNITS/500 ML BAG IV PRN ×2 (07:43→17:43)
[2023-12-26] MEDS ORDERED: LIDOCAINE 1% LOCAL 20 ML VIAL INFIL PRN (07:43)
--- NOTE | 2023-12-26 07:58 | History & Physical Report ---
Date of Service December 26, 2023 Assessment & Plan (1) Gestational diabetes: (2) Encounter for induction of labor: Plan 33 year old at 39 weeks of gestation here due to induction of labor due to CHTN and GDM GBS negative Pitocin as protocol Epidural when requested Fetus: Category 1 tracing Admission and Anticipated Discharge Date Admission Date: December 26, 2023 History of Present Illness Primary Care Provider: Constantino Calderon PA-C 33 y/o at 39 weeks Here for Induction of labor. Complications with this include CHTN in prior and GDM diet controlled. Has been attending OB appointments regularly. Currently taking no medications. GBS negative Rubella Immune, BTG: O + Contractions: present, since last night Fluid or Blood loss: none Movement: active FHR baseline 145, moderate variability, accelerations present, decelerations absent OB Labs: Blood Type O Positive 05/22/23 Antibody Screen NEGATIVE 05/22/23 Hemoglobin 11.2 g/dl (12.0-16.0) L 12/19/23 Hematocrit 34.2 % (37.0-47.0) L 12/19/23 Mean Corpuscular Volume 87.9 fL (80.0-100.0) 12/19/23 Platelet Count 171 K/uL (130-400) 12/19/23 Rubella IgG Antibody Immune (Immune) 05/22/23 Rapid Plasma Reagin Nonreactive (Nonreactive) 05/22/23 Hepatitis B Surface Antigen. NON-REACTIVE (NON-REACTIVE) 05/22/23 Hepatitis C Antibody (EIA) NON-REACTIVE (NON-REACTIVE) 05/22/23 HIV (1&2) Ag and Ab Confirmation NON-REACTIVE (NON-REACTIVE) 05/22/23 Glucose 1 Hour 50 gm Load 147 mg/dl (70-130) H 10/11/23 Maternal Serum Alpha Fetoprotein 29.5 ng/mL 07/16/23 OB Optional Labs: Chlamydia trachomatis RNA Not Detected (NotDetected) 05/22/23 Neisseria gonorrhoeae RNA Not Detected (NotDetected) 05/22/23 Alpha Fetoprotein Triple Screen SEE NOTE 07/16/23 Labs Reviewed: cfdna-low risk--mln Allergies Allergy/AdvReac Type Severity Reaction Status Date / Time Penicillins Allergy Mild Rash Verified 12/26/23 08:13 Home Medications Medication Instructions Recorded Confirmed Type albuterol 90 mcg/actuation aerosol 2 mcg inhalation Q4 PRN Wheezing 01/10/22 12/26/23 History inhaler polyethylene glycol 3350 17 gram 17 g PO DAILY 01/10/22 12/26/23 History oral powder packet (Miralax) prenat.vits,garth,[id number] 1 tab PO DAILY 01/10/22 12/26/23 History aspirin 81 mg tablet 81 mg PO DAILY 08/17/23 12/26/23 History blood sugar diagnostic (OneTouch #150 ea 11/22/23 12/26/23 Rx Verio test strips) blood-glucose meter (OneTouch #1 ea 11/22/23 12/26/23 Rx Verio Reflect Meter) lancets 33 gauge (OneTouch Delica #150 ea 11/22/23 12/26/23 Rx Plus Lancet) Breast Pump #1 ea 12/25/23 12/26/23 Rx Past Med/Surg History Problem List (Updated 12/26/23 @ 10:53 by Noble Saeed MD) Encounter for induction of labor NST (non-stress test) nonreactive Gestational diabetes Encounter for anatomic survey Encounter for supervision of normal in multigravida, antepartum Chronic hypertension during , antepartum Asthma Chronic hypertension (~09/19/18) Medical History Asthma Chronic hypertension (~09/19/18) Constipation Rhinitis Thyroid goiter UTI (urinary tract infection) Surgical History Hx of LASIK S/P removal of ovarian cyst (~06/13/17) Family History Mother Hypercholesterolemia Grandmother (Maternal) Diabetes Mother Diabetes Mother Chronic hypertension Grandfather (Maternal) Chronic hypertension Grandmother (Maternal) Chronic hypertension Grandmother (Maternal) Colon cancer Social History Smoking Status: Never smoker Second Hand Exposure: No; Do You Dip or Chew Tobacco: No; Tobacco Cessation Education Requested by Patient: No Hx Alcohol Use: No Hx Substance Use: No Preferred Language: Persian Communication Ability: Effective Water Treatment Plant Operator Required: No Beliefs That Will Affect Care: None marital status: marital status details: Shantel (33) [phone] Current Living Situation: Spouse Current Living Situation Comment: sh[place]el [place] current occupational status: employed current occupation: RN Other Information That Helps Us Care for You: No Feels Safe at Home: Yes Safety Concerns: Feels Safe At This Time Assistive Devices: None Review of Systems Review of Systems: as per HPI Physical Exam Physical Exam: General: patient resting comfortably, NAD, AA&O x 4, answers questions appropriately. Skin: warm, dry, intact HEENT: NC/AT, anicteric sclera, conjunctiva without injection, moist mucus membranes Heart: +S1/S2, regular, no m/r/g Lungs: equal air entry bilaterally, no rales/rhonchi/wheezes Abd: +BS, soft, NT/ND, gravid uterus Cervical: uterus mod. anterior Ext: warm, no edema Neuro: nonfocal, patient AA&O x 4, speech intact, no facial droop, moving all extremities on command. Supervising Physician Co-Signing Physician Notes Patient evaluated and agree with the above findings and plan. Resident Activity Tracking Resident Involvement: Resident Care Provided Care Provided: OB Delivery (1) Gestational diabetes Gestational diabetes mellitus control: diet-controlled Trimester: third trimester Qualified Code(s): O24.410 - Gestational diabetes mellitus in , diet controlled
[2023-12-26 08:16] LABS: Hematocrit (blood only) 33.4 % (37.0-47.0); Hemoglobin 10.8 g/dl (12.0-16.0); Mean Corpuscular Hgb Conc 32.3 g/dL (32.0-36.0); Mean Corpuscular Volume 86.5 fL (80.0-100.0); Mean Platelet Volume 11.6 fL (9.4-12.4); Platelet Count 174 K/uL (130-400); RDW Coefficient of Variation 13.2 % (11.5-14.5); RDW Standard Deviation 41.5 fL (36.4-46.3); Red Blood Count 3.86 M/uL (4.20-5.40); White Blood Count 7.32 K/ul (4.8-10.8)
[2023-12-26] MEDS: LACTATED RINGER'S 1,000 ML IV PRN (09:26)
[2023-12-26] MEDS: OXYTOCIN 30 UNITS/NSS 30 UNITS/500 ML BAG IV PRN (09:27)
[2023-12-26] MEDS ORDERED: diphenhydrAMINE 50 MG/ML VIAL IV PRN (13:47)
[2023-12-26] MEDS ORDERED: ROPIVACAINE 0.5% PF 5 MG/ML 20 ML VIAL EPI PRN (13:47)
[2023-12-26] MEDS ORDERED: BUPIVACAINE 0.25% PF 30 ML VIAL EPI PRN (13:47)
[2023-12-26] MEDS ORDERED: fentANYL 2 MCG/ML BUPIVacaine 0.125%-NSS 100ML BAG EPI PRN (13:47)
[2023-12-26] MEDS ORDERED: SODIUM CHLORIDE 0.9% PF INJ 10 ML VIAL EPI PRN (13:47)
[2023-12-26] MEDS ORDERED: LIDOCAINE 2% MPF LOCAL 5 ML VIAL EPI PRN (13:47)
[2023-12-26] MEDS ORDERED: NALBUPHINE HCL 5 MG in SYRINGE 0 ML IV PRN (13:47)
[2023-12-26] MEDS ORDERED: NALOXONE HCL 0.4 MG/1 ML VIAL/CARP IV PRN (13:47)
[2023-12-26] MEDS ORDERED: fentaNYL citrate PF 100 MCG/2 ML VIAL EPI PRN (13:47)
[2023-12-26] MEDS ORDERED: NALOXONE HCL 1 MG in SODIUM CHLORIDE 0.9% 1,000 ML IV PRN (13:47)
[2023-12-26] MEDS ORDERED: ePHEDrine sulfate 50 MG/ML AMP IV PRN (13:47)
--- NOTE | 2023-12-26 13:47 | Anesthesiology Consultation ---
Date of Service December 26, 2023 Assessment & Plan (1) Encounter for pre-operative examination: Chart Review Chart Review: Patient NOT seen in Pre Admission Testing and Acceptable Risk for Labor Epidural Consults Requested none History Height/Weight Height: 5 ft 8 in Weight: 94.347 kg Allergies Allergy/AdvReac Type Severity Reaction Status Date / Time Penicillins Allergy Mild Rash Verified 12/26/23 08:13 Medications Home Medications Medication Instructions Recorded Confirmed Last Taken albuterol 90 mcg/actuation aerosol 2 mcg inhalation Q4 PRN Wheezing 01/10/22 12/26/23 Unknown inhaler polyethylene glycol 3350 17 gram 17 g PO DAILY 01/10/22 12/26/23 01/10/22 06:00 oral powder packet (Miralax) prenat.vits,garth,[id number] 1 tab PO DAILY 01/10/22 12/26/23 12/25/23 aspirin 81 mg tablet 81 mg PO DAILY 08/17/23 12/26/23 12/25/23 blood sugar diagnostic (OneTouch #150 ea 11/22/23 12/26/23 Unknown Verio test strips) blood-glucose meter (OneTouch #1 ea 11/22/23 12/26/23 Unknown Verio Reflect Meter) lancets 33 gauge (OneTouch Delica #150 ea 11/22/23 12/26/23 Unknown Plus Lancet) Breast Pump #1 ea 12/25/23 12/26/23 Unknown Active Medications Generic Name Dose Route Start Last Admin Trade Name Freq PRN Reason Stop Dose Admin Lactated Ringer's 1,000 mls @ 125 mls/hr 12/26/23 07:43 12/26/23 09:26 Lr IV 12/28/23 07:42 125 mls/hr .Q8H PRN Administration L&D Protocol Protocol Oxytocin 30 units in 500 mls @ 10 mls/hr 12/26/23 07:44 12/26/23 11:30 Pitocin 30 Units/Nss IV 12/28/23 07:43 0.6 units/hr .Q24H PRN 10 mls/hr Labor Induction/Augmentation Titration Protocol 0.6 UNITS/HR Past Medical History Medical History UTI (urinary tract infection) Constipation Thyroid goiter Rhinitis Past Family History Family History Mother Hypercholesterolemia Grandmother (Maternal) Diabetes Mother Diabetes Mother Chronic hypertension Grandfather (Maternal) Chronic hypertension Grandmother (Maternal) Chronic hypertension Grandmother (Maternal) Colon cancer Past Surgical History Surgical History Hx of LASIK S/P removal of ovarian cyst (~06/13/17) Social History Smoking Status: Never smoker Do You Dip or Chew Tobacco: No Hx Alcohol Use: No Hx Substance Use: No substance use type: does not use Physical Exam Vital Signs Last Vital Signs Temp 98.4 F 12/26/23 12:28 Pulse 89 12/26/23 12:28 Resp 16 12/26/23 12:28 BP 140/98 12/26/23 12:28 Pulse Ox 97 12/26/23 12:28 Testing Laboratory Results 12/26/23 07:50 Blood Type O Positive 12/26/23 07:50 Antibody Screen NEGATIVE 12/26/23 07:50 12/26/23 08:04 POC Glucose 89
[2023-12-26] MEDS: LIDOCAINE 2%/EPINEPHRINE 1:200,000 20 ML PF ONE (14:10)
[2023-12-26] MEDS: BUPIVACAINE 0.25% PF 30 ML VIAL ONE (14:10)
[2023-12-26] MEDS: fentANYL 2 MCG/ML BUPIVacaine 0.125%-NSS 100ML BAG ONE (14:10)
[2023-12-26] MEDS: fentaNYL citrate PF 100 MCG/2 ML VIAL ONE (14:17)
[2023-12-26] MEDS: SODIUM CHLORIDE 0.9% PF INJ 10 ML VIAL ONE (14:17)
[2023-12-26] MEDS: ONDANSETRON INJ 2 MG/ML 2 ML VIAL IV PRN (14:31)
[2023-12-26] MEDS ORDERED: LIDOCAINE 2%/EPINEPHRINE 1:200,000 20 ML PF ONE (14:54)
[2023-12-26] MEDS: ePHEDrine sulfate 50 MG/ML AMP ONE (15:07)
[2023-12-26] MEDS: fentaNYL citrate PF 100 MCG/2 ML VIAL EPI STA (15:07)
[2023-12-26] MEDS: LIDOCAINE 2%/EPINEPHRINE 1:200,000 20 ML PF EPI STA (15:07)
[2023-12-26] MEDS: BUPIVACAINE 0.25% PF 30 ML VIAL EPI STA (15:07)
[2023-12-26] MEDS: SODIUM CHLORIDE 0.9% PF INJ 10 ML VIAL EPI STA (15:08)
[2023-12-26] MEDS ORDERED: NURSING L&D Epidural Breakthrough Pain Update ONE (15:13)
--- NOTE | 2023-12-26 15:50 | Anesthesia Procedure Note ---
Date of Service December 26, 2023 Anesthesia Epidural Re-Dose Vital Signs Temp Pulse Resp BP Pulse Ox 36.4 C L 86 20 134/82 99 12/26/23 15:05 12/26/23 15:47 12/26/23 15:05 12/26/23 15:33 12/26/23 15:47 Notes Pain Intensity: 5 Dilatation (cm): 8.0 Effacement (%): 100 Called by nursing to evaluate epidural as the patient is having increased pain. The epidural was re-dosed with the following medications (all medications via epidural route) after negative aspiration of the epidural catheter for CSF/HEME. 10ml of 2% LIdocaine After Epidural Re-Dose Mental Status: alert / awake / arousable Pain: improving with treatment Airway Patency, RR, SpO2: stable & adequate BP & HR: stable & adequate
[2023-12-26] MEDS ORDERED: HYDROCORTISONE ACETATE 25 MG SUPP PR PRN (17:43)
[2023-12-26] MEDS ORDERED: bisacodyL 10 MG SUPP PR PRN (17:43)
[2023-12-26] MEDS ORDERED: ACETAMINOPHEN 325 MG TAB PO PRN (17:43)
--- NOTE | 2023-12-26 17:45 | Delivery Summary ---
Vaginal Delivery Summary Date of Service December 26, 2023 Vaginal Delivery Summary Progressed to 10 cm dilated, 100% effaced +2-3 station and pushed over intact perineum with epidural anesthesia and delivered a viable with weight and Apgars pending. The delivered without difficulty followed by shoulders and body. was noted be vigorous soon after delivery and 1 minute delayed cord clamping was initiated. Cord was double clamped and cut remained maternal abdomen. Tension was turned delivery placenta delivered intact three-vessel cord gentle cord traction. Inspection of perineum vagina cervix there is noted to be no lacerations. No complications noted and QBL of 178 mL noted. [facility] Vaginal Delivery Charge Delivery Type Details:
[2023-12-26] MEDS: DIPHTHER/TETAN/PERTUS Vaccine (Tdap, Adol/Adult) 0.5mL IM ONE (18:01)
--- NOTE | 2023-12-26 18:25 | Anesthesia Procedure Note ---
Date of Service December 26, 2023 Anesthesia Post Epidural Note Vital Signs Vital Signs: Temp Pulse Resp BP Pulse Ox 36.4 C L 103 H 20 134/85 96 12/26/23 15:05 12/26/23 18:17 12/26/23 15:05 12/26/23 18:17 12/26/23 17:22 Pain Intensity Lower Pelvic: Pain Intensity: 0 Notes Mental Status: alert / awake / arousable and participated in evaluation Patient Amnestic to Procedure: No Nausea / Vomiting: adequately controlled Pain: adequately controlled Airway Patency, RR, SpO2: stable & adequate BP & HR: stable & adequate Hydration State: stable & adequate Neuraxial Anesthesia: was administered and sensory block is resolving Anesthetic Complications: no major complications apparent and Pt Satisfied with anesthetic care Epidural: Removed without complications and With tip intact
[2023-12-27] MEDS: IBUPROFEN 600 MG TAB PO PRN (00:14)
[2023-12-27] MEDS: DOCUSATE SODIUM 100 MG CAP PO SCH (00:34)
[2023-12-27 06:36] LABS: Hemoglobin 9.4 g/dl (12.0-16.0)
--- NOTE | 2023-12-27 06:40 | Obstetrical Progress Note ---
Date of Service December 27, 2023 Assessment & Plan (1) Encounter for care and examination after delivery: Plan Doing well today Vital signs reviewed Pain controlled Encourage breast feeding Rubella immune, O+ Continue post care Admission and Anticipated Discharge Date Admission Date: December 26, 2023 Supervising Physician Co-Signing Physician Notes Patient seen with resident and agree with the above findings and plan. Will continue to evaluate for urinary retention. Straight cath x 1 overnight for 400 mL. Postvoid residual of 150 mL noted at 6:30 AM. Will recommend nurse to reevaluate with bladder scan at 10 or 11 and please call before straight cath if needed. Subjective 33 yo post- day 1 s/p Ambulation: ambulating normally Voiding: incontinence Passing Gas:: Yes Diet Tolerance:: regular diet Lochia:: Small Feeding Type: breast feeding Current Pain Level: controlled Resting comfortably this AM in NAD. Denies GLOVER, CP, SOB, N/V/D, LE pain/swelling. Review of Systems Review of Systems: as per HPI Physical Exam Physical Exam: General: patient resting comfortably, NAD, non-toxic in appearance, AA&O x 4, answers questions appropriately. Skin: warm, dry, intact HEENT: NC/AT, anicteric sclera, conjunctiva without injection, moist mucus membranes. Heart: +S1/S2, regular, no m/r/g Lungs: equal air entry bilaterally, no rales/rhonchi/wheezes Abd: +BS, soft, NT/ND, uterine fundus firm at umbilicus Ext: warm, no clubbing/cyanosis or edema, Dario's neg. Neuro: nonfocal, patient AA&O x 4, speech intact, no facial droop, moving all extremities on command. Results & Data Vital Signs (Past 12 Hours) Vital Signs Temp Pulse Pulse Resp BP BP Pulse Ox 12/27/23 03:00 36.8 C 78 18 130/80 98 12/26/23 23:00 36.4 C L 84 18 142/93 H 98 12/26/23 20:05 36.8 C 89 18 136/90 98 12/26/23 19:32 113 H 12/26/23 19:32 128/79 12/26/23 19:20 37.0 C 18 12/26/23 19:17 93 H 12/26/23 19:17 129/77 12/26/23 19:02 102 H 12/26/23 19:02 121/65 12/26/23 18:47 91 H 12/26/23 18:47 131/89 O2 Del Method 12/27/23 03:00 Room Air 12/26/23 23:00 Room Air 12/26/23 20:05 Room Air 12/26/23 19:32 12/26/23 19:32 12/26/23 19:20 12/26/23 19:17 12/26/23 19:17 12/26/23 19:02 12/26/23 19:02 12/26/23 18:47 12/26/23 18:47 Resident Activity Tracking Resident Involvement: Resident Care Provided Care Provided: OB Delivery
[2023-12-27] MEDS: PRENATAL VITAMIN 1 TAB PO SCH (08:09)
[2023-12-27] MEDS: FERROUS SULFATE 325 MG TAB PO SCH (08:09)
[2023-12-27] MEDS: BENZOCAINE 20% SPRY 85 APPLN/85 GM CAN EXT PRN (17:26)
[2023-12-27] MEDS ORDERED: bisacodyL 5 MG TABEC PO SCH (20:00)
== END 2023-12-27 18:45 | disposition home or self-care (01) | DRG 807 ==
LOC: 4S1 07:33 → 4E2 20:15